=== PATIENT | male | born 1990 | race Caucasian/White ===

== ENCOUNTER 2022-06-10 07:30 | Outpatient (CLI) | payer BC | END 2022-06-10 07:31 | disposition home or self-care (01) | LOC: SCSMRI 07:30 | PROVIDERS: ATTEND Orthopaedic Surgery | DX: M23.92 Unspecified internal derangement of left knee (principal); R60.0 Localized edema; M25.762 Osteophyte, left knee; M25.462 Effusion, left knee ==

== ENCOUNTER 2023-03-27 10:01 | Outpatient (CLI) | payer BC ==
[2023-03-27 12:07] LABS: #Eosinphils 0.1 10x3/uL (0.0-0.5); #Monocytes 0.6 10x3/uL (0.0-1.1); #Neutrophils 3.8 10x3/uL (1.5-8.4); %Basophils 0.6 % (0.0-2.0); %Eosinophils 1.7 % (0.0-6.0); %Lymphocytes 29.8 % (18.0-47.0); %Monocytes 8.7 % (0.0-10.0); %Neutrophils 58.6 % (40.0-75.0); Hematocrit 46.9 % (38.8-50.0); Hemoglobin 16.2 g/dL (13.5-17.5); Mean Corpuscular HGB CONC 34.5 g/dL (32.0-36.0); Mean Corpuscular Volume 89.8 fl (81.2-95.1); Mean Platelet Volume 10.6 fl (7.4-10.4); Platelet Count 295 10x3/uL (150-450); RBC Distribution Width 12.1 % (11.5-14.5); Red Blood Cell (RBC) Count 5.22 10x6/uL (4.32-5.72); White Blood Cell (WBC) Count 6.4 10x3/uL (3.5-10.5)
== END 2023-03-27 10:02 | disposition home or self-care (01) ==
LOC: LABBT 10:01
PROVIDERS: ATTEND Orthopaedic Surgery
DX: Z01.812 Encounter for preprocedural laboratory examination (principal); M22.42 Chondromalacia patellae, left knee
CPT/HCPCS: 85025

== ENCOUNTER 2023-04-01 06:03 | Day surgery (SDC) | payer BC ==
[2023-03-27 10:23] VITALS: BMI 26.9
[2023-04-01] MEDS ORDERED: Lidocaine 2% PF 5 ML VIAL ONE ×2 (06:51)
[2023-04-01] MEDS ORDERED: PROPOFOL 20 ML ONE ×3 (06:51→08:27)
[2023-04-01] MEDS ORDERED: Dexamethasone 20 MG/5 ML VIAL ONE (06:51)
[2023-04-01] MEDS ORDERED: Ketorolac Tromethamine 30 MG (1 mL) VIAL ONE (06:51)
[2023-04-01] MEDS ORDERED: fentaNYL PF 100 MCG/2 ML SYRINGE ONE (06:51)
[2023-04-01] MEDS ORDERED: Ondansetron PF 4 MG/2 ML Vial ONE (06:51)
[2023-04-01] MEDS ORDERED: Bupivacaine PF 0.5% 30 ML VIAL ONE (06:52)
[2023-04-01] MEDS ORDERED: CEFAZOLIN 2 GM VIAL ONE (07:12)
[2023-04-01] MEDS ORDERED: Sodium Chloride 0.9% 100 ML ONE (07:12)
[2023-04-01] MEDS ORDERED: Bupivacaine HCl 0.5%/Epinephrine 1:200,000/PF 30 ml Vial ONE (07:15)
[2023-04-01] MEDS ORDERED: Midazolam HCl 2 mg/2 ml Vial ONE (07:27)
[2023-04-01] MEDS ORDERED: fentaNYL 50 mcg/mL 1 mL Vial ONE (07:43)
== END 2023-04-01 12:05 | disposition home or self-care (01) ==
LOC: SDC 06:03
PROVIDERS: ATTEND Orthopaedic Surgery
PROC: 0SBD4ZZ Excision of Left Knee Joint, Percutaneous Endoscopic Approach (ICD-10-PCS; principal; 2023-04-01)
DX: M22.42 Chondromalacia patellae, left knee (principal); M24.10 Other articular cartilage disorders, unspecified site; F10.90 Alcohol use, unspecified, uncomplicated; Z98.890 Other specified postprocedural states; Z79.899 Other long term (current) drug therapy
CPT/HCPCS: J1100; J1885; J2001; J2250; J2405; J2704; J3010; J3490; S0020

== ENCOUNTER 2023-09-23 05:54 | Observation (INO) | payer BC ==
[2023-09-21 14:26] VITALS: BMI 27.5
[2023-09-23] MEDS ORDERED: Thrombin 5000 UNITS/5 ML VIAL ONE (06:28)
[2023-09-23] MEDS ORDERED: PROPOFOL 20 ML ONE ×2 (06:35→06:36)
[2023-09-23] MEDS ORDERED: Lidocaine 2% PF 5 ML VIAL ONE (06:35)
[2023-09-23] MEDS ORDERED: fentaNYL PF 100 MCG/2 ML SYRINGE ONE ×3 (06:35→10:42)
[2023-09-23] MEDS ORDERED: fentaNYL 50 mcg/mL 1 mL Vial ONE (06:47)
[2023-09-23] MEDS ORDERED: Midazolam HCl 2 mg/2 ml Vial ONE (06:47)
[2023-09-23] MEDS ORDERED: Bupivacaine PF 0.5% 30 ML VIAL ONE (06:47)
[2023-09-23 06:58] LABS: #Basophils Less than 0.03 10x3/uL (0.0-0.2); %Basophils 0.3 % (0.0-1.0); %Eosinophils 1.6 % (0.0-10.0); %Lymphocytes 26.4 % (21.0-51.0); Hematocrit 44.5 % (42.0-52.0); Hemoglobin 15.8 g/dL (14.0-18.0); Mean Corpuscular HGB CONC 35.5 g/dL (32.0-36.0); Mean Corpuscular Hemoglobin 31.9 pg (27.0-31.0); Mean Corpuscular Volume 89.9 fL (78.0-98.0); Mean Platelet Volume 10.2 fL (7.4-10.4); Platelet Count 272 10x3/uL (130-400); RBC Distribution Width 12.4 % (11.5-14.5); Red Blood Cell (RBC) Count 4.95 mill/uL (4.70-6.10)
[2023-09-23] MEDS ORDERED: Sodium Chloride 0.9% 100 ML ONE (07:04)
[2023-09-23] MEDS ORDERED: CEFAZOLIN 2 GM VIAL ONE (07:04)
[2023-09-23] MEDS ORDERED: Bupivacaine HCl 0.5%/Epinephrine 1:200,000/PF 30 ml Vial ONE (07:10)
[2023-09-23] MEDS ORDERED: Vancomycin (BATCH) 1.5 GM/300 ML BAG ONE (07:11)
[2023-09-23 07:33] LABS: Anion Gap 15 mmol/L (10-20); BUN (Urea Nitrogen) 10 mg/dL (8.9-20.6); Calc. Creatinine Clearance 134 mL/min (70-130); Calcium 9.5 mg/dL (7.8-10.44); Carbon Dioxide 23 mmol/L (22-29); Chloride 104 mmol/L (98-107); Estimated GFR 90; Glucose 90 mg/dL (70-105); Potassium 3.8 mmol/L (3.5-5.1); Sodium 138 mmol/L (136-145)
[2023-09-23] MEDS ORDERED: ePHEDrine Sulfate 50 MG/10 ML VIAL ONE (08:08)
[2023-09-23] MEDS ORDERED: Mineral Oil Sterile 10 ML VIAL ONE (09:15)
[2023-09-23] MEDS ORDERED: HYDROmorphone 0.5 MG/0.5 ML SYRINGE ONE (10:02)
[2023-09-23] MEDS ORDERED: fentaNYL 50 mcg/mL 1 mL Vial SLOW IVP PRN (10:12)
[2023-09-23] MEDS ORDERED: Bisacodyl 10 MG SUPP PR PRN (10:13)
[2023-09-23] MEDS ORDERED: HYDROcodone/Acetaminophen 7.5/325 mg Tablet PO PRN (10:13)
[2023-09-23] MEDS ORDERED: Acetaminophen 500 MG TAB PO PRN (10:13)
[2023-09-23] MEDS ORDERED: Milk Of Magnesia 30 ML UDCUP PO PRN (10:13)
[2023-09-23] MEDS ORDERED: diphenhydrAMINE 50 MG CAP PO PRN (10:13)
[2023-09-23] MEDS ORDERED: Methocarbamol 500 MG TAB PO PRN (10:13)
[2023-09-23] MEDS ORDERED: Promethazine HCl 25 MG/ML VIAL IM PRN (10:15)
[2023-09-23] MEDS ORDERED: Zolpidem Tartrate 5 MG TAB PO PRN (10:15)
[2023-09-23] MEDS ORDERED: Ropivacaine 0.2% 550 ML 550 ML NERVE BLCK SCH (10:15)
[2023-09-23] MEDS: Ketorolac Tromethamine 30 MG (1 mL) VIAL IVP SCH (13:02)
[2023-09-23] MEDS: Ondansetron PF 4 MG/2 ML Vial IVP PRN (13:02)
[2023-09-23] MEDS: Dextrose 5 %-0.45 % NaCl 1,000 ML IV SCH (14:02)
[2023-09-23] MEDS: traMADol HCl 50 MG TAB PO PRN (16:28)
[2023-09-23] MEDS: CEFAZOLIN 2 GM in Sodium Chloride 0.9% 100 ML IVPB SCH (16:29)
[2023-09-23] MEDS: HYDROcodone/Acetaminophen 7.5/325 mg Tablet PO PRN (20:07)
[2023-09-23] MEDS: Famotidine 20 MG TAB PO SCH (20:07)
[2023-09-24 12:25] VITALS: BP 120/75; TEMP 98
== END 2023-09-24 13:11 | disposition home or self-care (01) ==
LOC: SDC 05:54 → SURG A 12:30
PROVIDERS: ADMIT Orthopaedic Surgery; ATTEND Orthopaedic Surgery
PROC: 0SUD07Z Supplement Left Knee Joint with Autologous Tissue Substitute, Open Approach (ICD-10-PCS; principal; 2023-09-23)
PROC: 3E0T3BZ Introduction of Anesthetic Agent into Peripheral Nerves and Plexi, Percutaneous Approach (ICD-10-PCS; 2023-09-23)
DX: M21.962 Unspecified acquired deformity of left lower leg (principal); M22.42 Chondromalacia patellae, left knee
CPT/HCPCS: 80048; 85025; A4306; C2613; J0665; J1170; J1885; J2001; J2250; J2405; J2704; J2795; J3010; J3370; J3490